=== PATIENT | female | born 2000 | race Caucasian/White ===

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

== ENCOUNTER 2022-02-10 04:24 | Emergency (ER) | payer MEDICAID ==
[2022-02-10 04:34] VITALS: BP 148/88
[2022-02-10] MEDS ORDERED: oxyCODONE/ACET 5/325 Prepack 4 PO STA (04:40)
--- NOTE | 2022-02-10 04:46 | ED Physician Documentation ---
History of Present Illness - Stated complaint Stated Complaint: R SIDE TOOTH PX - History obtained from History obtained from: Patient, Family (mother) - Additonal information Additional information: 21yF p/w R upper dental pain for the past couple days, keeping her awake this past evening. she saw healthcare provider yesterday and was given antibiotics for possible dental infection. denies fever, trismus. tolerating secretions okay. notes that she had a filling to the tooth and it cracked. Review of Systems Throat: reports: Dental pain / toothache PD PAST MEDICAL HISTORY - Past Medical History Cardiovascular: Murmur Respiratory: Asthma GI: GERD Psych: Depression, Anxiety - Past Surgical History Past Surgical History: No - Allergies Allergies/Adverse Reactions: Allergies Allergy/AdvReac Type Severity Reaction Status Date / Time No Known Drug Allergies Allergy Verified 02/10/22 04:37 - Social History Does the pt smoke?: No Smoking Status: Never smoker Does the pt drink ETOH?: No Does the pt have substance abuse?: No - Immunizations Immunizations are current?: Yes - POLST Patient has POLST: No PD ED PE NORMAL - Vitals Vital signs reviewed: Yes - General General: Alert and oriented X 3, No acute distress - HEENT HEENT: Atraumatic, PERRL, EOMI, Dentition benign, Other (tooth 3 ttp without obvious avulsion, swelling or injury) Results - Vitals Vitals: Vital Signs - 24 hr 02/10/22 04:27 Temperature 36.5 C Heart Rate 106 H Blood Pressure 148/88 H O2 Saturation 97 Oxygen O2 Source Room air PD Medical Decision Making - ED course ED course: 21yF p/w severe pain to R upper tooth with benign appearance on exam. analgesia and emergency dentist referral provided. return precautions given. Departure - Departure Disposition: 01 Home, Self Care Clinical Impression: Pain, dental Condition: Good Instructions: ED Tooth Pain Follow-Up: Enio Piper DDS [Provider Admit Priv/Credential] - Comments: You are seen in the emergency department for dental pain. Please follow-up with emergency dental Dr. Enio Piper tomorrow morning. Return to the emergency department if you have any new or worsening symptoms or other concerns. Discharge Date/Time: 02/10/22 04:44
== END 2022-02-10 04:44 | disposition home or self-care (01) ==
LOC: ED 04:24
DX: K08.89 Other specified disorders of teeth and supporting structures (principal)
CPT/HCPCS: 99282; 99283

== ENCOUNTER 2022-02-10 23:47 | Emergency (ER) | payer MEDICAID ==
[2022-02-10 23:57] VITALS: BP 160/98
[2022-02-11] MEDS ORDERED: KETOROLAC 30 MG/ML VIAL IM STA (00:09)
--- NOTE | 2022-02-11 00:11 | ED Physician Documentation ---
History of Present Illness - Stated complaint Stated Complaint: R TOOTH PX - Chief complaint Chief Complaint: Heent - History obtained from History obtained from: Patient - Additonal information Additional information: 21-year-old girl presents with persistent dental pain after being seen here yesterday and referred to emergency dentist. She is unable to get an appointment until February 19. She denies new symptoms. Review of Systems Throat: reports: Dental pain / toothache PD PAST MEDICAL HISTORY - Past Medical History Cardiovascular: Murmur Respiratory: Asthma GI: GERD Psych: Depression, Anxiety - Past Surgical History Past Surgical History: No - Present Medications Home Medications: Ambulatory Orders Medication Instructions Recorded Confirmed Drospirenone/Estetrol [Nextstellis 02/10/22 3-14.2 mg Tablet] Ketorolac [Toradol] 10 mg PO Q6H PRN #30 tablet 02/11/22 - Allergies Allergies/Adverse Reactions: Allergies Allergy/AdvReac Type Severity Reaction Status Date / Time No Known Drug Allergies Allergy Verified 02/10/22 23:52 - Social History Does the pt smoke?: No Smoking Status: Never smoker Does the pt drink ETOH?: No Does the pt have substance abuse?: No - Immunizations Immunizations are current?: Yes - POLST Patient has POLST: No PD ED PE NORMAL - Vitals Vital signs reviewed: Yes - General General: Alert and oriented X 3, No acute distress, Well developed/nourished - HEENT HEENT: Atraumatic, PERRL, EOMI, Pharynx benign, Dentition benign (R upper molar ttp) Results - Vitals Vitals: Vital Signs - 24 hr 02/10/22 23:54 Temperature 36.8 C Heart Rate 93 Respiratory 16 Rate Blood Pressure 160/98 H O2 Saturation 95 Oxygen O2 Source Room air PD Medical Decision Making - ED course ED course: 21-year-old woman presents with persistent dental pain, responsive to Toradol. Prescription sent to pharmacy. She will follow-up with dental February 19. Return precautions given. Departure - Departure Disposition: Home, Self Care Clinical Impression: Pain, dental Condition: Stable Instructions: ED Tooth Pain Prescriptions: Ketorolac [Toradol] 10 mg PO Q6H PRN #30 tablet PRN Reason: Pain Comments: You are seen in the emergency department for dental pain. Toradol, a strong anti-inflammatory medication was sent electronically to your pharmacy [facility] in [place]. You should also diamond picker Orajel from the pharmacy. This is a topical numbing medicine for dental pain. Follow-up with your dentist. Return to the emergency department if you have new or worsening symptoms or concerns.
== END 2022-02-11 00:22 | disposition home or self-care (01) ==
LOC: ED 23:47
DX: K08.89 Other specified disorders of teeth and supporting structures (principal)
CPT/HCPCS: 96372; 99282; 99283

== ENCOUNTER 2022-08-15 18:31 | Emergency (ER) | payer MEDICAID ==
[2022-08-15 19:01] LABS: RAPID STREP SCREEN Negative (Negative)
--- NOTE | 2022-08-15 19:14 | ED Physician Documentation ---
PD HPI URI - Stated complaint Stated Complaint: SORE THROAT,EAR ACHE - Chief complaint Chief Complaint: Heent - History obtained from History obtained from: Patient - History of Present Illness Timing - onset: How many weeks ago (2) Timing duration: Weeks (2) Timing details: Gradual onset Pain level max: 3 Pain level now: 3 Associated symptoms: Chills, Ear pain ("popping"), Nasal congestion, Rhinorrhea, Sore throat, Dry cough. No: Fever, Swollen nodes, Hemoptysis, Chest pain, Dyspnea Contributing factors: Sick contact Recently seen: Not recently seen Review of Systems Constitutional: denies: Fever, Chills Nose: reports: Rhinorrhea / runny nose, Congestion Throat: reports: Sore throat Respiratory: reports: Cough GI: denies: Vomiting, Diarrhea : denies: Now EGA Musculoskeletal: denies: Neck pain, Back pain PD PAST MEDICAL HISTORY - Past Medical History Cardiovascular: Murmur Respiratory: Asthma GI: GERD Psych: Depression, Anxiety - Past Surgical History Past Surgical History: No - Present Medications Home Medications: Ambulatory Orders Medication Instructions Recorded Confirmed Drospirenone/Estetrol [Nextstellis 1 tab ORAL DAILY 02/10/22 08/15/22 3-14.2 mg Tablet] Cetirizine HCl/Pseudoephedrine 1 tab PO BID PRN #20 tab 08/15/22 [Zyrtec-D ER 5 mg-120 mg Tablet] - Allergies Allergies/Adverse Reactions: Allergies Allergy/AdvReac Type Severity Reaction Status Date / Time No Known Drug Allergies Allergy Verified 08/15/22 18:41 - Social History Does the pt smoke?: No Smoking Status: Never smoker Does the pt drink ETOH?: No Does the pt have substance abuse?: No - Immunizations Immunizations are current?: Yes - POLST Patient has POLST: No PD ED PE NORMAL - Vitals Vital signs reviewed: Yes - General General: Alert and oriented X 3, No acute distress - HEENT HEENT: PERRL, Ears normal, Moist mucous membranes, Pharynx benign, Other (Posterior pharyngeal erythema without tonsillar exudates. Uvula midline. Normal phonation. No trismus. Clear rhinorrhea. Posterior cobblestoning) - Neck Neck: Supple, no meningeal sign, No adenopathy - Cardiac Cardiac: RRR, Strong equal pulses - Respiratory Respiratory: No respiratory distress, Clear bilaterally - Abdomen Abdomen: Soft, Non tender, Non distended - Derm Derm: Warm and dry - Neuro Neuro: Alert and oriented X 3 - Psych Psych: Normal mood, Normal affect Results - Vitals Vitals: Vital Signs - 24 hr 08/15/22 08/15/22 18:41 19:20 Temperature 36.5 C 36.5 C Heart Rate 77 77 Respiratory 16 16 Rate Blood Pressure 147/73 H 128/72 O2 Saturation 99 100 Oxygen O2 Source Room air - Labs Labs: Laboratory Tests 08/15/22 18:45 Group A Strep Rapid Negative PD Medical Decision Making - ED course Complexity details: reviewed results, re-evaluated patient, considered differential, d/w patient ED course: Patient is very well-appearing, nontoxic. Afebrile. Rapid strep is negative. Exam is more consistent with a viral pharyngitis and viral URI. We will place her on decongestants for home. Given dexamethasone here. No stridor. No wheezing. Normal phonation. No trismus. Lungs clear to auscultation bilaterally. No hypoxia. No indication for x-ray. Patient counseled regarding signs and symptoms for which I believe and urgent re-evaluation would be necessary. Patient with good understanding of and agreement to plan and is comfortable going home at this time This document was made in part using voice recognition software. While efforts are made to proofread this document, sound alike and grammatical errors may occur. Departure - Departure Disposition: 01 Home, Self Care Clinical Impression: Viral URI Condition: Good Instructions: ED Viral Syndrome Follow-Up: Huong Miller ARNP [Primary Care Provider] - As Needed Prescriptions: Cetirizine HCl/Pseudoephedrine [Zyrtec-D ER 5 mg-120 mg Tablet] 1 tab PO BID PRN #20 tab PRN Reason: nasal congestion Comments: Your prescriptions were sent to [facility] in [place]. Please follow up with your doctor for futher care. Your rapid strep is negative today. A throat culture was sent and we will call you if that test is positive. This appears to be a viral syndrome. Discharge Date/Time: 08/15/22 19:20
[2022-08-15] MEDS: PSEUDOEPHEDRINE 30 MG TABLET PO STA (19:15)
[2022-08-15] MEDS: CETIRIZINE 10 MG TABLET PO STA (19:15)
[2022-08-15] MEDS: DEXAMETHASONE 10 MG/ML VIAL PO STA (19:16)
[2022-08-15] MEDS: CHERRY SYRUP 10 ML UDC PO ONE (19:16)
[2022-08-15 19:21] VITALS: BP 128/72
== END 2022-08-15 19:20 | disposition home or self-care (01) ==
LOC: ED 18:31
DX: J06.9 Acute upper respiratory infection, unspecified (principal)
CPT/HCPCS: 87070; 87430; 99283; A9270

== ENCOUNTER 2022-08-29 20:37 | Emergency (ER) | payer MEDICAID ==
[2022-08-29 20:54] LABS: BILIRUBIN,URINE NEGATIVE (NEGATIVE); GLUCOSE, URINE (UA) NEGATIVE (NEGATIVE); KETONES,URINE (UA) TRACE mg/dL (NEGATIVE); LEUKOCYTE ESTERASE, URINE SMALL (NEGATIVE); NITRITE,URINE NEGATIVE (NEGATIVE); OCCULT BLOOD,URINE MODERATE (NEGATIVE); PROTEIN,URINE NEGATIVE (NEGATIVE); UROBILINOGEN,URINE 2 E.U./dL (NORMAL)
[2022-08-29 20:55] LABS: CLARITY,URINE HAZY (CLEAR); HCG UR QUAL NEGATIVE
[2022-08-29 21:03] LABS: BACTERIA,URINE Few /HPF (None Seen); SQUAMOUS EPITHELIAL CELL,UR FEW Squamous (<= Few); WBC,URINE >25 /HPF (0-5)
--- NOTE | 2022-08-29 22:13 | ED Physician Documentation ---
PD HPI FEMALE - Stated complaint Stated Complaint: FEMALE - Chief complaint Chief Complaint: General - History obtained from History obtained from: Patient - Additional information Additional information: HPI from patient. Patient complains of approximately 1 week of UTI symptoms; specifically, burning with urination, frequent urination, and sensation of incomplete voiding. She says the symptoms are similar to her previous urinary tract infections. Denies fever. Review of Systems Constitutional: denies: Fever : reports: Dysuria, Frequency. denies: Now EGA PD PAST MEDICAL HISTORY - Past Medical History Cardiovascular: Murmur Respiratory: Asthma GI: GERD Psych: Depression, Anxiety - Past Surgical History Past Surgical History: No - Present Medications Home Medications: Ambulatory Orders Medication Instructions Recorded Confirmed Drospirenone/Estetrol [Nextstellis 1 tab ORAL DAILY 02/10/22 08/29/22 3-14.2 mg Tablet] Nitrofurantoin [Macrobid] 100 mg PO BID #10 cap 08/29/22 Phenazopyridine HCl [Pyridium] 200 mg PO TID PRN #6 tablet 08/29/22 - Allergies Allergies/Adverse Reactions: Allergies Allergy/AdvReac Type Severity Reaction Status Date / Time No Known Drug Allergies Allergy Verified 08/29/22 20:41 - Social History Does the pt smoke?: No Smoking Status: Never smoker Does the pt drink ETOH?: Yes Does the pt have substance abuse?: No Substance Use and Type: Marijuana - Immunizations Immunizations are current?: Yes - POLST Patient has POLST: No PD ED PE NORMAL - Vitals Vital signs reviewed: Yes - General General: Alert and oriented X 3, No acute distress, Well developed/nourished - Abdomen Abdomen: Soft, Non tender - Back Back: No CVA TTP - Derm Derm: Normal color Results - Vitals Vitals: Oxygen O2 Source Room air - Labs Labs: Microbiology 08/29/22 20:48 Urine Culture - Final Urine,Clean Catch >100,000 COLONIES/ML Polymicrobial growth including potential pathogens. This is suggestive of skin or other contamination. Laboratory Tests 08/29/22 20:48 Urine Color YELLOW Urine Clarity HAZY Urine pH 6.0 Ur Specific [place] 1.025 Urine Protein NEGATIVE Urine Glucose (UA) NEGATIVE Urine Ketones TRACE Urine Occult Blood MODERATE H Urine Nitrite NEGATIVE Urine Bilirubin NEGATIVE Urine Urobilinogen 2 H Ur Leukocyte Esterase SMALL H Urine RBC 11-25 H Urine WBC >25 H Ur Squamous Epith Cells FEW Squamous Urine Bacteria Few Ur Microscopic Review INDICATED Urine Culture Comments INDICATED Urine HCG, Qual NEGATIVE PD Medical Decision Making - ED course Complexity details: reviewed results, re-evaluated patient, considered differential, d/w patient ED course: HPI s/o UTI and UA results are c/w this diagnosis. She is given pyridium and macrobid in ED with rx for these medications e-prescribed to her pharmacy of choice. Departure - Departure Disposition: 01 Home, Self Care Clinical Impression: Urinary tract infection Qualifiers: Urinary tract infection type: acute cystitis Hematuria presence: with hematuria Qualified Code(s): N30.01 - Acute cystitis with hematuria Condition: Good Instructions: ED UTI Cystitis Female Prescriptions: Nitrofurantoin [Macrobid] 100 mg PO BID #10 cap Phenazopyridine HCl [Pyridium] 200 mg PO TID PRN #6 tablet PRN Reason: dysuria Comments: Your urinalysis results are consistent with a urinary tract infection. You were given the first dose of an antibiotic (nitrofurantoin) as well as Pyridium (medication that can help ease the symptoms of urinary tract infection) in the emergency department, and prescriptions for both these medications have been electronically submitted to the [facility] in [place]. Discharge Date/Time: 08/29/22 23:03
[2022-08-29] MEDS: NITROFURANTOIN MACRO 100 MG CAPSULE PO STA (23:00)
[2022-08-29] MEDS: PHENAZOPYRIDINE 100 MG TABLET PO STA (23:00)
[2022-08-29 23:04] VITALS: BP 146/89
== END 2022-08-29 23:03 | disposition home or self-care (01) ==
LOC: ED 20:37
DX: N30.01 Acute cystitis with hematuria (principal)
CPT/HCPCS: 81001; 81025; 87086; 99283; A9270; 81003

== ENCOUNTER 2022-11-25 17:37 | Emergency (ER) | payer MEDICAID ==
[2022-11-25 18:12] VITALS: O2SAT 99
[2022-11-25 18:22] LABS: RAPID STREP SCREEN Negative (Negative)
[2022-11-25 19:28] LABS: BILIRUBIN,URINE NEGATIVE (NEGATIVE); GLUCOSE, URINE (UA) NEGATIVE (NEGATIVE); KETONES,URINE (UA) NEGATIVE (NEGATIVE); LEUKOCYTE ESTERASE, URINE NEGATIVE (NEGATIVE); NITRITE,URINE NEGATIVE (NEGATIVE); OCCULT BLOOD,URINE NEGATIVE (NEGATIVE); PROTEIN,URINE NEGATIVE (NEGATIVE); UROBILINOGEN,URINE 1 (NORMAL) E.U./dL (NORMAL)
[2022-11-25 19:30] LABS: CLARITY,URINE CLEAR (CLEAR); HCG UR QUAL NEGATIVE
[2022-11-25] MEDS ORDERED: cephALEXin 250 MG CAPSULE PO STA (19:49)
[2022-11-25] MEDS ORDERED: CHERRY SYRUP 10 ML UDC PO ONE (19:49)
[2022-11-25] MEDS ORDERED: DEXAMETHASONE 10 MG/ML VIAL PO STA (19:49)
--- NOTE | 2022-11-25 19:51 | ED Physician Documentation ---
History of Present Illness - Stated complaint Stated Complaint: CHILLS/THROAT PX/EAR PX - Chief complaint Chief Complaint: Heent - History obtained from History obtained from: Patient - History of Present Illness Timing: Yesterday Pain level max: 5 Pain level now: 5 - Additonal information Additional information: Patient is a 22-year-old female who presents to the emergency department stating that she has a sore throat today. That started yesterday. She states she noted white patches on her tonsils today. Has felt feverish at home. Ears were painful as well. No cough. No abdominal pain, nausea or vomiting. Patient is unsure if she could be . She is concerned about potential strep throat. No rashes. No diarrhea. Review of Systems Constitutional: reports: Fever, Chills Nose: denies: Rhinorrhea / runny nose, Congestion Throat: reports: Sore throat Cardiac: denies: Chest pain / pressure Respiratory: denies: Dyspnea, Cough, Wheezing GI: denies: Vomiting Skin: denies: Rash PD PAST MEDICAL HISTORY - Past Medical History Past Medical History: Yes Cardiovascular: Murmur Respiratory: Asthma Neuro: None Endocrine/Autoimmune: None GI: GERD LARD REFINER: None : None HEENT: None Psych: Depression, Anxiety Musculoskeletal: None Derm: None - Past Surgical History Past Surgical History: No - Present Medications Home Medications: Ambulatory Orders Medication Instructions Recorded Confirmed Albuterol Sulf [Ventolin Hfa 1 - 2 puffs INH Q4HR PRN 11/25/22 11/25/22 Inhaler] Cetirizine HCl/Pseudoephedrine 1 tab PO BID PRN #20 tab 11/25/22 [Zyrtec-D ER 5 mg-120 mg Tablet] Penicillin V Potassium 500 mg PO Q6HR #40 tablet 11/25/22 - Allergies Allergies/Adverse Reactions: Allergies Allergy/AdvReac Type Severity Reaction Status Date / Time No Known Drug Allergies Allergy Verified 11/25/22 18:03 - Social History Does the pt smoke?: No Smoking Status: Never smoker Does the pt drink ETOH?: No Does the pt have substance abuse?: Yes Substance Use and Type: Marijuana - Immunizations Immunizations are current?: Yes - POLST Patient has POLST: No PD ED PE NORMAL - Vitals Vital signs reviewed: Yes - General General: Alert and oriented X 3, No acute distress - HEENT HEENT: Ears normal, Moist mucous membranes, Dentition benign, Other (posterior oropharynx is erythematous with tonsillar exudates. uvula midline. normal phonation. no trismus or stridor.) - Neck Neck: Supple, no meningeal sign, No adenopathy - Cardiac Cardiac: RRR, Strong equal pulses - Respiratory Respiratory: No respiratory distress, Clear bilaterally - Abdomen Abdomen: Soft, Non tender - Back Back: No CVA TTP - Derm Derm: Warm and dry, No rash - Extremities Extremities: No edema - Neuro Neuro: Alert and oriented X 3 Results - Vitals Vitals: Oxygen O2 Source Room air - Labs Labs: Microbiology 11/25/22 18:10 Group A Strep Throat Culture - Final Throat Beta Hemolytic Strep Group G Laboratory Tests 11/25/22 11/25/22 18:10 19:20 Urine Color YELLOW Urine Clarity CLEAR Urine pH 6.0 Ur Specific [place] >=1.030 H Urine Protein NEGATIVE Urine Glucose (UA) NEGATIVE Urine Ketones NEGATIVE Urine Occult Blood NEGATIVE Urine Nitrite NEGATIVE Urine Bilirubin NEGATIVE Urine Urobilinogen 1 (NORMAL) Ur Leukocyte Esterase NEGATIVE Ur Microscopic Review NOT INDICATED Urine Culture Comments NOT INDICATED Urine HCG, Qual NEGATIVE Group A Strep Rapid Negative PD Medical Decision Making - ED course Complexity details: reviewed results, re-evaluated patient, considered differential, d/w patient ED course: Rapid, strep test is negative, but her exam is consistent with strep pharyngitis. We will place her on antibiotics and give her a dose of dexamethasone here. We will have her follow up with her PCP as needed for further care. Patient is well appearing, non toxic. Tolerating PO without difficulty. No evidence of peritonsillar abscess or retropharyngeal abscessPatient counseled regarding signs and symptoms for which I believe an urgent re-evaluation would be necessary. Patient with good understanding of and agreement to plan and is comfortable going home at this time. This document was made in part using voice recognition software. While efforts are made to proofread this document, sound alike and grammatical errors may occur. Departure - Departure Disposition: 01 Home, Self Care Clinical Impression: Tonsillitis URI (upper respiratory infection) Qualifiers: URI type: unspecified URI Qualified Code(s): J06.9 - Acute upper respiratory infection, unspecified Condition: Good Instructions: ED URI Viral, ED Tonsillitis Follow-Up: Huong Miller ARNP [Primary Care Provider] - Within 1 week Prescriptions: Penicillin V Potassium 500 mg PO Q6HR #40 tablet Cetirizine HCl/Pseudoephedrine [Zyrtec-D ER 5 mg-120 mg Tablet] 1 tab PO BID PRN #20 tab PRN Reason: nasal congestion Comments: Your prescriptions were sent to [facility] in [place]. Please follow-up with your doctor as needed for further care. A throat culture was also sent and we will call you if an antibiotic change is needed. Make sure you are drinking ple nty of fluids. Forms: PCP List Discharge Date/Time: 11/25/22 20:17
[2022-11-25 20:01] VITALS: BP 132/74
== END 2022-11-25 20:17 | disposition home or self-care (01) ==
LOC: ED 17:37
DX: J03.90 Acute tonsillitis, unspecified (principal); J06.9 Acute upper respiratory infection, unspecified
CPT/HCPCS: 81003; 81025; 87070; 87430; 99283; A9270; 81001; 87086

== ENCOUNTER 2023-03-09 08:00 | Outpatient (CLI) | payer BC ==
--- NOTE | 2023-03-09 18:43 | XRAY Report ---
PROCEDURE: Ankle 3+V RT INDICATIONS: SPRAIN OF RIGHT ANKLE TECHNIQUE: 3 views of the ankle were acquired. COMPARISON: None. FINDINGS: Bones: No fractures or dislocations. Ankle mortise is normally aligned. No suspicious bony lesions . Soft tissues: No tibiotalar joint effusion. Achilles tendon appears normal. IMPRESSION: No acute bony abnormality. Reviewed by: Julio Cesar Brandt MD on 03/09/2023 6:42 PM PST Approved by: Julio Cesar Brandt MD on 03/09/2023 6:42 PM [facility] Station ID: [id number]
== END 2023-03-09 23:59 | disposition home or self-care (01) ==
LOC: DI.S 08:00
PROVIDERS: ATTEND Physician Assistant Medical
DX: S93.401A Sprain of unspecified ligament of right ankle, initial encounter (principal)

== ENCOUNTER 2023-03-18 11:53 | Emergency (ER) | payer BC ==
[2023-03-18 12:33] LABS: BASOPHILS # (AUTO) 0.1 10^3/uL (0.0-0.1); BASOPHILS % (AUTO) 0.5 %; EOSINOPHILS # (AUTO) 0.1 10^3/uL (0.0-0.7); EOSINOPHILS % (AUTO) 1.3 %; HCT - HEMATOCRIT 38.5 % (37.0-47.0); HGB - HEMOGLOBIN 13.1 g/dL (12.0-16.0); LYMPHOCYTES # (AUTO) 2.4 10^3/uL (1.5-3.5); LYMPHOCYTES % (AUTO) 24.9 %; MEAN CORPUSCULAR HEMOGLOBIN 28.1 pg (27.0-31.0); MEAN CORPUSCULAR VOLUME 82.6 fL (81.0-99.0); MEAN PLATELET VOLUME 8.2 fL (7.9-10.8); MONOCYTES # (AUTO) 0.6 10^3/uL (0.0-1.0); MONOCYTES % (AUTO) 6.4 %; NEUTROPHILS # (AUTO) 6.5 10^3/uL (1.5-6.6); NEUTROPHILS % (AUTO) 66.6 %; PLT - PLATELET COUNT 357 10^3/uL (130-450); RED BLOOD COUNT 4.66 10^6/uL (4.20-5.40); RED CELL DISTRIBUTION WIDTH 12.9 % (12.0-15.0); WHITE BLOOD COUNT 9.7 x10^3/uL (4.8-10.8)
[2023-03-18 12:48] LABS: ALBUMIN 4.1 g/dL (3.2-5.5); ALBUMIN/GLOBULIN RATIO 1.3 (1.0-2.2); ALKALINE PHOSPHATASE 112 IU/L (42-121); ALT ALANINE AMINOTRANSFERASE 21 IU/L (10-60); AST ASPARTATE AMINOTRANSFERASE 15 IU/L (10-42); BILIRUBIN,TOTAL 0.9 mg/dL (0.2-1.0); BUN - BLOOD UREA NITROGEN 10 mg/dL (6-20); CALCIUM 9.4 mg/dL (8.5-10.3); CARBON DIOXIDE - CO2 21 mmol/L (21-32); CHLORIDE 107 mmol/L (101-111); CREATININE 0.5 mg/dL (0.6-1.3); GFR - MDRD 157 (>89); GLUCOSE 92 mg/dL (74-104); LIPASE < 10 U/L (11-82); POTASSIUM 3.8 mmol/L (3.5-4.5); SODIUM 136 mmol/L (135-145); TOTAL PROTEIN 7.3 g/dL (6.4-8.9)
[2023-03-18] MEDS ORDERED: SODIUM CHLORIDE 0.9% 1,000 ML IV STA (13:22)
--- NOTE | 2023-03-18 13:25 | ED Physician Documentation ---
PD HPI SYNCOPE - Stated complaint Stated Complaint: OCHOA,PASSED OUT - Chief complaint Chief Complaint: Neuro - History obtained from History obtained from: Patient, Family () - History of Present Illness Witnessed: Unwitnessed Timing - onset: Today Duration: Unknown Preceding symptoms: None Associated symptoms: Seizure (?), Headache, Other (shaky on awakening from seizure) Contributing factors: Other (up to get ready for work) Injury occurred: None Similar symptoms before: Diagnosis (seizure related to dehydration and hyperventilation 2021) Recently seen: Clinic - Additional information Additional information: 22-year-old Javier Blackburn was getting ready for work this morning and the next thing that she remembers was answering her phone while she was laying on the floor in the bathroom. She indicates that her work had called letting her know that she was late to work. She had no specific symptoms prior to the episode does not remember the episode Review of Systems Constitutional: reports: Fever (2 wks ago fever was associated with headache.) Eyes: denies: Decreased vision Ears: denies: Ear pain Nose: denies: Rhinorrhea / runny nose, Congestion Throat: denies: Sore throat Cardiac: denies: Chest pain / pressure, Palpitations Respiratory: denies: Dyspnea, Cough GI: reports: Abdominal Pain (intermittant sharp nirav-umbilical pain X 1 months. Brief 1-2 seconds up to several times per day.). denies: Nausea, Vomiting : denies: Dysuria, Frequency Skin: denies: Rash Musculoskeletal: denies: Neck pain, Back pain, Extremity pain Neurologic: reports: Syncope, Seizure, Headache, LOC. denies: Generalized weakness, Focal weakness, Numbness, Head injury PD PAST MEDICAL HISTORY - Past Medical History Past Medical History: Yes Cardiovascular: Murmur Respiratory: Asthma Neuro: None Endocrine/Autoimmune: None GI: GERD GAS ENGINE MECHANIC: None : None HEENT: None Psych: Depression, Anxiety Musculoskeletal: None Derm: None - Past Surgical History Past Surgical History: No - Present Medications Home Medications: Ambulatory Orders Medication Instructions Recorded Confirmed Albuterol Sulf [Ventolin Hfa 1 - 2 puffs INH Q4HR PRN 11/25/22 11/25/22 Inhaler] Cetirizine HCl/Pseudoephedrine 1 tab PO BID PRN #20 tab 11/25/22 [Zyrtec-D ER 5 mg-120 mg Tablet] Penicillin V Potassium 500 mg PO Q6HR #40 tablet 11/25/22 - Allergies Allergies/Adverse Reactions: Allergies Allergy/AdvReac Type Severity Reaction Status Date / Time No Known Drug Allergies Allergy Verified 03/18/23 12:00 - Social History Does the pt smoke?: No Smoking Status: Never smoker Does the pt drink ETOH?: No Does the pt have substance abuse?: Yes - Immunizations Immunizations are current?: Yes - POLST Patient has POLST: No PD ED PE NORMAL - Vitals Vital signs reviewed: Yes - General General: Alert and oriented X 3, No acute distress, Well developed/nourished - HEENT HEENT: Atraumatic, PERRL, EOMI, Ears normal, Moist mucous membranes, Pharynx benign, Dentition benign - Neck Neck: Supple, no meningeal sign, No bony TTP - Cardiac Cardiac: RRR, No murmur - Respiratory Respiratory: No respiratory distress, Clear bilaterally - Abdomen Abdomen: Normal bowel sounds, Soft, Non distended, No organomegaly, Other (mild nirav-umbilical tenderness to deep palpation. ) - Back Back: No CVA TTP, No spinal TTP - Derm Derm: Normal color, Warm and dry, No rash - Extremities Extremities: No deformity, No edema - Neuro Neuro: Alert and oriented X 3, django developer 2-12 intact, No motor deficit, No sensory deficit, Normal speech Eye Opening: Spontaneous Motor: Obeys Commands Verbal: Oriented GCS Score: 15 - Psych Psych: Normal mood, Normal affect Results - Vitals Vitals: Vital Signs - 24 hr 03/18/23 03/18/23 03/18/23 12:00 12:54 14:00 Temperature 36.8 C Heart Rate 83 76 78 Respiratory 16 13 21 Rate Blood Pressure 140/70 H 124/67 120/68 O2 Saturation 96 97 97 03/18/23 03/18/23 03/18/23 14:34 15:00 15:40 Temperature 36.5 C Heart Rate 76 71 76 Respiratory 15 24 17 Rate Blood Pressure 122/72 122/72 122/75 O2 Saturation 96 95 96 Oxygen O2 Source Room air - EKG (time done) 1206 EKG releavant findings:: EKG personally interpreted by author of this note. Relevant findings are: Rate: Rate (enter#) (81) Rhythm: LAE Ischemia: Normal ST segments Compare to prior EKG: Changed from prior EKG (SPT 08-16-21 rate is slower) Computer interpretation: Agree with computer - Labs Labs: Laboratory Tests 03/18/23 03/18/23 03/18/23 12:26 12:26 12:53 WBC 9.7 RBC 4.66 Hgb 13.1 Hct 38.5 MCV 82.6 MCH 28.1 MCHC 34.0 RDW 12.9 Plt Count 357 MPV 8.2 Neut # (Auto) 6.5 Lymph # (Auto) 2.4 [place] # (Auto) 0.6 Eos # (Auto) 0.1 Baso # (Auto) 0.1 Absolute Nucleated RBC 0.00 Nucleated RBC % 0.0 Sodium 136 Potassium 3.8 Chloride 107 Carbon Dioxide 21 Anion Gap 8.0 BUN 10 Creatinine 0.5 L Estimated GFR (MDRD) 157 Glucose 92 POC Whole Bld Glucose 90 Lactic Acid Calcium 9.4 Total Bilirubin 0.9 AST 15 ALT 21 Alkaline Phosphatase 112 Total Protein 7.3 Albumin 4.1 Globulin 3.2 Albumin/Globulin Ratio 1.3 Lipase < 10 L Urine Color Urine Clarity Urine pH Ur Specific [place] Urine Protein Urine Glucose (UA) Urine Ketones Urine Occult Blood Urine Nitrite Urine Bilirubin Urine Urobilinogen Ur Leukocyte Esterase Urine RBC Urine WBC Ur Squamous Epith Cells Urine Bacteria Ur Microscopic Review Urine Culture Comments Urine HCG, Qual 03/18/23 03/18/23 03/18/23 13:11 13:11 13:40 WBC RBC Hgb Hct MCV MCH MCHC RDW Plt Count MPV Neut # (Auto) Lymph # (Auto) [place] # (Auto) Eos # (Auto) Baso # (Auto) Absolute Nucleated RBC Nucleated RBC % Sodium Potassium Chloride Carbon Dioxide Anion Gap BUN Creatinine Estimated GFR (MDRD) Glucose POC Whole Bld Glucose Lactic Acid 0.6 Calcium Total Bilirubin AST ALT Alkaline Phosphatase Total Protein Albumin Globulin Albumin/Globulin Ratio Lipase Urine Color YELLOW Urine Clarity SL. CLOUDY Urine pH 6.0 Ur Specific [place] 1.020 Urine Protein NEGATIVE Urine Glucose (UA) NEGATIVE Urine Ketones NEGATIVE Urine Occult Blood NEGATIVE Urine Nitrite NEGATIVE Urine Bilirubin NEGATIVE Urine Urobilinogen 1 (NORMAL) Ur Leukocyte Esterase SMALL H Urine RBC None Seen Urine WBC 4-5 Ur Squamous Epith Cells MOD Squamous H Urine Bacteria Rare Ur Microscopic Review INDICATED Urine Culture Comments NOT INDICATED Urine HCG, Qual NEGATIVE - Rads (name of study) CT head Relevant Findings:: Prelim report reviewed (Impression: No acute intracranial pathology.), EMP independent interpretation of test, See rad report Procedures - IVC sono (time) 1300 Bedside IVC sono: IVC measures (cm) (1.12), Dehydration (est 1 deficit) PD Medical Decision Making - ED course Complexity details: reviewed results, re-evaluated patient, considered differential, d/w patient, d/w family Reviewed Lab Results: We reviewed a complete blood count showing a normal white blood cell count normal hemoglobin hematocrit and platelets normal indices and differential. The chemistries showed normal electrolytes normal kidney and liver function lactate is normal at 0.6 urinalysis otherwise unremarkable negative hCGThese laboratory tests are essentially unremarkable and do not contribute any specific diagnosis. The lactate of 0.6 makes seizure less likely. ED course: 22-year-old female getting ready for work has had a syncopal episode and has awakened at a later time. She is evaluated here for seizure as she has a prior history of witnessed seizure. She has a family history of seizure. Today her lactate is not elevated and I question the possibility that this was a syncopal episode and not associated with seizure and I would like to hold off on placing the patient on antiseizure medication with the second seizure until evaluation by neurology. Departure - Departure Disposition: 01 Home, Self Care Clinical Impression: Syncope Qualifiers: Syncope type: unspecified Qualified Code(s): R55 - Syncope and collapse Condition: Stable Instructions: ED Syncope Vasovagal Follow-Up: Huong Miller ARNP [Primary Care Provider] - Comments: Cassity, today it looks like you may have had another seizure or just had a fainting episode. The finding we had today was some mild dehydration and we had no other specific findings on evaluation. CAT scan of your head looked normal. The event was not witnessed and we do not know if you had a seizure or passed out. Seizure precautions are indicated. Do not drive, operate machinery, go on a roof or ladder and do not bath in a tub alone or swim unsupervised. A follow up with neurology is indicated. Forms: PCP List
[2023-03-18 13:34] LABS: HCG UR QUAL NEGATIVE
[2023-03-18 14:17] LABS: BILIRUBIN,URINE NEGATIVE (NEGATIVE); GLUCOSE, URINE (UA) NEGATIVE (NEGATIVE); KETONES,URINE (UA) NEGATIVE (NEGATIVE); LEUKOCYTE ESTERASE, URINE SMALL (NEGATIVE); NITRITE,URINE NEGATIVE (NEGATIVE); OCCULT BLOOD,URINE NEGATIVE (NEGATIVE); PROTEIN,URINE NEGATIVE (NEGATIVE); UROBILINOGEN,URINE 1 (NORMAL) E.U./dL (NORMAL)
[2023-03-18 14:22] LABS: CLARITY,URINE SL. CLOUDY (CLEAR)
[2023-03-18 14:31] LABS: BACTERIA,URINE Rare /HPF (None Seen); RBC,URINE None Seen /HPF (0-5); SQUAMOUS EPITHELIAL CELL,UR MOD Squamous (<= Few)
--- NOTE | 2023-03-18 14:52 | CT Report ---
PROCEDURE: Head WO INDICATIONS: headache, seizure TECHNIQUE: Noncontrast 4.5 mm thick angled axial sections acquired from the foramen magnum to the vertex. For r adiation dose reduction, the following was used: automated exposure control, adjustment of mA and/or kV according to patient size. COMPARISON: None. FINDINGS: Image quality: Excellent. CSF spaces: Basal cisterns are patent. No extra-axial fluid collections. Ventricles are normal in size and shape. Brain: No midline shift. No intracranial masses or hemorrhage. Dorman-white matter interface is norm al. Skull and face: Calvarium and visualized facial bones are intact, without suspicious lesions. Sinuses: Visualized sinuses and mastoids are clear. IMPRESSION: No acute intracranial pathology. Reviewed by: Jerry Samuel MD on 03/18/2023 2:50 PM PST Approved by: Jerry Samuel MD on 03/18/2023 2:50 PM PST Station ID: [id number]
[2023-03-18 15:44] VITALS: BP 122/75; O2SAT 96
== END 2023-03-18 15:42 | disposition home or self-care (01) ==
LOC: ED 11:53
DX: R55 Syncope and collapse (principal); Z79.899 Other long term (current) drug therapy
CPT/HCPCS: 36415; 80053; 81001; 81003; 81025; 83605; 83690; 85025; 87086; 93005; 99284

== ENCOUNTER 2023-08-03 09:25 | Emergency (ER) | payer BC, OTHER ==
--- NOTE | 2023-08-03 09:30 | ED Physician Documentation ---
PD HPI ABD PAIN - Stated complaint Stated Complaint: LOWER BACK/ABD PX - History obtained from History obtained from: Patient - History of Present Illness Timing - onset: How many days ago (33) Timing - duration: Days Timing - details: Gradual onset, Still present Quality: Cramping, Aching, Pain Location: Suprapubic Radiation: Lower back Improved by: No: Eating Worsened by: No: Eating, Moving, Breathing Associated symptoms: Nausea, Dysuria. No: Fever, Diarrhea, Constipation, Hematuria, Vaginal bleeding, Vaginal dc Similar symptoms before: Diagnosis (UTIs) Recently seen: Not recently seen (had Augmentin tab left over from prior UTI and took yesterday, but not feeling any imrovement into today.) Review of Systems Constitutional: reports: Chills, Myalgias. denies: Fever Nose: denies: Rhinorrhea / runny nose, Congestion Throat: denies: Sore throat Respiratory: denies: Cough GI: reports: Abdominal Pain, Nausea. denies: Abdominal Swelling, Constipation, Diarrhea : reports: Dysuria, Frequency. denies: Discharge, Vaginal bleeding PD PAST MEDICAL HISTORY - Past Medical History Cardiovascular: Murmur Respiratory: Asthma Neuro: None Endocrine/Autoimmune: None GI: GERD OFFICE MAIL CLERK: None : None HEENT: None Psych: Depression, Anxiety Musculoskeletal: None Derm: None - Past Surgical History Past Surgical History: No - Present Medications Home Medications: Ambulatory Orders Medication Instructions Recorded Confirmed Albuterol Sulf [Ventolin Hfa 1 - 2 puffs INH Q4HR PRN 11/25/22 11/25/22 Inhaler] Cetirizine HCl/Pseudoephedrine 1 tab PO BID PRN #20 tab 11/25/22 [Zyrtec-D ER 5 mg-120 mg Tablet] Penicillin V Potassium 500 mg PO Q6HR #40 tablet 11/25/22 - Allergies Allergies/Adverse Reactions: Allergies Allergy/AdvReac Type Severity Reaction Status Date / Time No Known Drug Allergies Allergy Verified 03/18/23 12:00 - Social History Does the pt smoke?: No Smoking Status: Never smoker Does the pt drink ETOH?: No Does the pt have substance abuse?: Yes - Immunizations Immunizations are current?: Yes - POLST Patient has POLST: No PD ED PE NORMAL - Vitals Vital signs reviewed: Yes - General General: Alert and oriented X 3, Well developed/nourished - Cardiac Cardiac: RRR (mild tachycardia), No murmur - Respiratory Respiratory: Clear bilaterally - Abdomen Abdomen: Normal bowel sounds, Soft, Non distended, No organomegaly, Other (tender suprapubic area left more than right. Seems more thender than I would expect for UTI. Consider ovarian cyst, HGC, torsion, as well. Also consider BV. ) Results - Vitals Vitals: Vital Signs - 24 hr 08/03/23 09:36 Temperature 36.1 C L Heart Rate 101 H Respiratory 20 Rate Blood Pressure 165/104 H O2 Saturation 98 Oxygen O2 Source Room air - Labs Labs: Laboratory Tests 08/03/23 08/03/23 09:32 09:32 Urine Color YELLOW Urine Clarity CLEAR Urine pH 5.5 Ur Specific [place] 1.025 Urine Protein NEGATIVE Urine Glucose (UA) NEGATIVE Urine Ketones NEGATIVE Urine Occult Blood TRACE-LYSE Urine Nitrite NEGATIVE Urine Bilirubin NEGATIVE Urine Urobilinogen 0.2 (NORMAL) Ur Leukocyte Esterase NEGATIVE Ur Microscopic Review NOT INDICATED Urine HCG, Qual NEGATIVE Chlam trachomat DNA PCR NEGATIVE N.gonorrhoeae DNA (PCR) NEGATIVE T. vaginalis (PCR) NEGATIVE - Rads (name of study) pelvic US Relevant Findings:: Prelim report reviewed, EMP independent interpretation of test (no cysts, no free fluid. Mild increased vascularity around left ovary, consider pelvic congestion syndrome. No torsion. ) PD Medical Decision Making - ED course Complexity details: reviewed results (UA not convincing for UTI. could be better appearing due to dose of Augmentin, so not excluding UTI. However BV could also fit the symptoms, so treat for now pending tests later/tomorrow. ), considered differential (dysuria symptoms and back pain. Did have AUgmentin left over from prior UTI several months ago and had taken one yesterday but did not seem inoproved. ), d/w patient Reviewed Lab Results: Chalmydia and GC negative. Seeing that the BV screen was cancelled for some reason in lab orders. Nursing had sent two swabs. So will need to continue empiric treatment for BV as likely diagnosis and cannot include/exclude it. I did not see any diagnostic value in CBC nor chemistries, so no blood tests done. Departure - Departure Disposition: 01 Home, Self Care Clinical Impression: Dysuria, Lower abdominal pain Condition: Stable Discharge Date/Time: 08/03/23 12:30
[2023-08-03 09:51] VITALS: BP 165/104; O2SAT 98
[2023-08-03 10:39] LABS: BILIRUBIN,URINE NEGATIVE (NEGATIVE); GLUCOSE, URINE (UA) NEGATIVE (NEGATIVE); KETONES,URINE (UA) NEGATIVE (NEGATIVE); LEUKOCYTE ESTERASE, URINE NEGATIVE (NEGATIVE); NITRITE,URINE NEGATIVE (NEGATIVE); OCCULT BLOOD,URINE TRACE-LYSE (NEGATIVE); PH,URINE 5.5 PH (5.0-7.5); PROTEIN,URINE NEGATIVE (NEGATIVE); UROBILINOGEN,URINE 0.2 (NORMAL) E.U./dL (NORMAL)
[2023-08-03 13:07] LABS: CLARITY,URINE CLEAR (CLEAR); HCG UR QUAL NEGATIVE
[2023-08-03 13:08] LABS: CHLAMYDIA TRACHOMATIS DNA NEGATIVE (NEGATIVE); NEISSERIA GONORRHOEAE DNA NEGATIVE (NEGATIVE); TRICHOMONAS VAGINALIS DNA NEGATIVE (NEGATIVE)
[2023-08-03] MEDS ORDERED: PHENAZOPYRIDINE 100 MG TABLET PO ONE (14:00)
[2023-08-03] MEDS ORDERED: ACETAMINOPHEN 500 MG TABLET PO ONE (14:00)
[2023-08-03] MEDS ORDERED: IBUPROFEN 600 MG TABLET PO ONE (14:00)
--- NOTE | 2023-08-03 17:24 | Ultrasound Report ---
PROCEDURE: Pelvic Complete INDICATIONS: Lower abd/pelvic pain TECHNIQUE: Real-time transabdominal scanning was performed of the pelvic organs, with image documentation. COMPARISON: None FINDINGS: Uterus: Uterus is anteverted and normal in size at 7.4 x 3.0 x 4.5 cm. The myometrium is homogeneou s. The endometrium measures 4.6 mm in combined thickness. Ovaries: The right ovary measures 3.7 x 2.0 x 3.2 cm, with a calculated ovarian volume of 12 cc. Th e left ovary measures 3.5 x 2.2 x 2.9 cm, with a calculated ovarian volume of 11.7 cc. The ovaries h ave a normal sonographic appearance. Less than 12 follicles can be seen in each ovary. No adnexal m asses are seen. No cystic lesions measuring greater than 3 cm. Other: No free pelvic fluid. Mild increased vascularity surrounding the left adnexa. IMPRESSION: Mild increased vascularity surrounding the left adnexa. This is overall not cystic. However, this can be seen with pelvic congestion syndrome. Reviewed by: Kaia Wright MD on 08/03/2023 5:23 PM PDT Approved by: Kaia Wright MD on 08/03/2023 5:23 PM PDT Station ID: [id number]
== END 2023-08-03 12:30 | disposition home or self-care (01) ==
LOC: ED 09:25
DX: R30.0 Dysuria (principal); M54.50 Low back pain, unspecified; R10.30 Lower abdominal pain, unspecified
CPT/HCPCS: 76856; 81003; 81025; 87491; 87591; 87661; 99284; A9270; 81001; 81514